=== PATIENT | male | born 1950 | race African-American/Black ===

== ENCOUNTER → 2016-12-13 | Outpatient (CLI) | payer MEDICARE, MEDICAID ==
--- NOTE | 2016-12-13 12:04 | Diagnostic Imaging Report ---
Indication: Abdominal pain left groin pain Technique: Spiral acquisitions obtained through the abdomen and pelvis. Patient given oral contrast. No IV contrast utilized, per referring physician request.. Multiplanar reconstructions were generated. Total dose length product 623 mGycm. CTDIvol(s) 12 mGy. Dose reduction achieved using automated exposure control Comparison: None Findings: Left groin region appears unremarkable. There is no evidence of hernia. There are small lymph nodes present, which are symmetric compared to the contralateral side. There is equivocal mild wall thickening of the proximal sigmoid and distal descending colon, although this could be artifact of under distention. The appendix is normal. No evidence of diverticulosis or diverticulitis. No small bowel distention. Contrast is seen to have traversed the entirety of the small bowel and most of the colon, reaching the distal sigmoid. No free or loculated intraperitoneal air or fluid. There is a tiny fat-containing umbilical hernia. The distal esophagus, stomach, duodenum are unremarkable. The lack of IV contrast limits assessment of the solid organs. There is a calcification in segment 8 of the liver laterally. The gallbladder, bile ducts are grossly unremarkable. There is mild ectasia of the pancreatic duct. The spleen, adrenals are unremarkable. The right kidney demonstrates a 1.5 cm interpolar region fluid attenuation cyst. The left kidney demonstrates multiple cysts. No calculi, hydronephrosis, or hydroureter demonstrated. No retroperitoneal or mesenteric mass or adenopathy. No pelvic mass or adenopathy. The lung bases demonstrate minimal linear atelectasis or scarring. There are degenerative changes of the lumbosacral junction. Sclerotic lesions are seen in the bilateral iliac wings Impression: Equivocal mild wall thickening of the proximal sigmoid and distal descending colon; suspect artifact of under distention but could represent colitis. Correlate with clinical findings No acute process otherwise. Negative for evidence of inguinal hernia or other significant inguinal pathology Mild ectasia of the pancreatic duct, significance uncertain. Correlate with laboratory findings Other findings as noted, including tiny fat-containing umbilical hernia, degenerative spondylosis, bilateral renal cysts, bilateral iliac probable bone islands The CT scanner at [facility] is accredited by the [employer] and the scans are performed using protocols designed to limit radiation exposure to as low as reasonably achievable to attain images of sufficient resolution adequate for diagnostic evaluation.
== END | disposition home or self-care (01) ==
LOC: CAT 09:12
DX: R10.9 Unspecified abdominal pain (principal)
CPT/HCPCS: 74176

== ENCOUNTER 2017-02-01 09:44 | Outpatient (CLI) | payer MEDICARE, MEDICAID ==
[2017-02-01] MEDS ORDERED: NORVASC10 MG ORAL (10:45)
[2017-02-01] MEDS ORDERED: LISINOPRIL20 MG ORAL (10:45)
[2017-02-01] MEDS ORDERED: LUNESTA2 MG ORAL (10:45)
[2017-02-01] MEDS ORDERED: ASPIRIN325 MG ORAL (10:45)
[2017-02-01] MEDS ORDERED: VITAMIN D1000 UNI1 ORAL (10:45)
[2017-02-01] MEDS ORDERED: SOMA250 MG PO (10:45)
[2017-02-01] MEDS ORDERED: CLONIDINE0.1 MG GT (10:45)
[2017-02-01] MEDS ORDERED: DIAZEPAM10 MG ORAL (10:45)
[2017-02-01] MEDS ORDERED: PROMETHAZINE HC25 M1 ORAL (10:45)
[2017-02-01] MEDS ORDERED: TAMSULOSIN HCL0.4 MG ORAL (10:45)
[2017-02-01] MEDS ORDERED: NORCO 5-325 TA1 EAC1 ORAL (10:45)
--- NOTE | 2017-02-01 10:50 | GI Initial Consult Note ---
Torres,Gillian Simon NDianaPDiana 02/01/17 1050: History of Present Illness General Date patient seen: Feb 01, 2017 Time patient seen: 10:00 Referring physician: SIRIA Reason for Consultation: COLONOSCOPY Present Illness HPI 66 year old male patient referred by Dr. Sears for colonoscopy screening. Patient stated he his last colonoscopy was approximately 8-10 years ago and the patient had ?colon CA that had been resolved through spiritual healing. Also noted that patient has noted hernia. He presents to the clinic today with no general GI complaints. Denies any weight loss or changes in dietary habits. Noted recent CT shows mild wall thickening of the proximal sigmoid and distal descending colon, see full report below. Service Date: 12/13/16 Procedure: CT Abdomen Pelvis WO Contrast Indication: Abdominal pain left groin pain Impression: Equivocal mild wall thickening of the proximal sigmoid and distal descending colon; suspect artifact of under distention but could represent colitis. Correlate with clinical findings. No acute process otherwise. Negative for evidence of inguinal hernia or other significant inguinal pathology Mild ectasia of the pancreatic duct, significance uncertain. Correlate with laboratory findings Other findings as noted, including tiny fat-containing umbilical hernia, degenerative spondylosis, bilateral renal cysts, bilateral iliac probable bone islands Home Meds Reported Medications Clonidine HCl (Clonidine HCl) 0.1 Mg Tablet, 0.1 MG GT, TAB 02/01/17 Cholecalciferol (Vitamin D3)* (VITAMIN D*) 1,000 Unit Tablet, 5000 UNITS ORAL, # 60 TAB 0 Refills 02/01/17 Hydrocodone Bit/Acetaminophen 5-325* (NORCO 5-325 TABLET*) 1 Each Tablet, 1 TAB ORAL Q4H Y, TAB 02/01/17 Amlodipine Besylate (Norvasc) 10 Mg Tablet, 10 MG ORAL DAILY, TAB 02/01/17 Diazepam* (DIAZEPAM*) 10 Mg Tablet, 10 MG ORAL, TAB 0 Refills 02/01/17 Promethazine Hcl* (PHENERGAN*) 25 Mg Tablet, 25 MG ORAL Q6H, TAB 02/01/17 Aspirin* (ASPIRIN*) 325 Mg Tablet, 325 MG ORAL DAILY, TAB 02/01/17 Eszopiclone (LUNESTA) 2 Mg Tablet, 2 MG ORAL BEDTIME Y, TAB 0 Refills 02/01/17 Lisinopril (LISINOPRIL*) 20 Mg Tablet, 40 MG ORAL DAILY, TAB 02/01/17 Carisoprodol (SOMA) 250 Mg Tablet, 350 MG PO Q6H, TAB 02/01/17 Tamsulosin Hcl (TAMSULOSIN HCL*) 0.4 Mg Cap.er.24h, 0.4 MG ORAL BEDTIME, CAP 02/01/17 Med list reviewed/reconciled: Yes Allergies: Coded Allergies: No Known Allergies (Unverified , 02/20/16) Patient History History Provided By: Patient PMH Narrative HTN Insomnia Sciatica Degenerative Bone Disease (C3-C4) Asthma Family History Narrative Grandfather - prostate CA Mother - Uterine CA Social History: Reports: other - caffiene Review of Systems All Other Systems: negative except mentioned in HPI Physical Exam T 98.0 BP 91/64 P 54 98 RA HT 5'8 WT 175 lbs Sp02 EP Interpretation: reviewed General Appearance: well appearing, no apparent distress, alert Head: normocephalic EENT: PERRL/EOMI, normal ENT inspection, TMs normal Neck: full range of motion Respiratory: chest non-tender, normal breath sounds Cardiovascular: normal peripheral pulses, normal rate Gastrointestinal: normal inspection, non tender, soft, normal bowel sounds Rectal: deferred Genitourinary: no CVA tenderness Musculoskeletal: normal inspection, back normal Neurologic: normal inspection, alert, oriented x3, responsive Psychiatric: normal inspection, judgement/insight normal, memory normal Skin: normal inspection, normal color, no rash, warm/dry Lymphatic: normal inspection, no adenopathy GI: Plan Problems: (1) Colonoscopy planned (2) HTN (hypertension) (3) Insomnia (4) Sciatic nerve disease (5) Degenerative disorder of bone (6) Asthma (7) Colon wall thickening Plan colonoscopy scheduled 02/12/17. - CLD & [employer] prep instructions given. - patient instructed to hold ASA 325 day prior - pt requires transportation Seen with Dr. Hamilton. Thank you for referring this patient. SHELDON HAMILTON 02/04/17 2157: History of Present Illness Present Illness Home Meds Reported Medications Clonidine HCl (Clonidine HCl) 0.1 Mg Tablet, 0.1 MG GT, TAB 02/01/17 Cholecalciferol (Vitamin D3)* (VITAMIN D*) 1,000 Unit Tablet, 5000 UNITS ORAL, # 60 TAB 0 Refills 02/01/17 Hydrocodone Bit/Acetaminophen 5-325* (NORCO 5-325 TABLET*) 1 Each Tablet, 1 TAB ORAL Q4H Y, TAB 02/01/17 Amlodipine Besylate (Norvasc) 10 Mg Tablet, 10 MG ORAL DAILY, TAB 02/01/17 Diazepam* (DIAZEPAM*) 10 Mg Tablet, 10 MG ORAL, TAB 0 Refills 02/01/17 Promethazine Hcl* (PHENERGAN*) 25 Mg Tablet, 25 MG ORAL Q6H, TAB 02/01/17 Aspirin* (ASPIRIN*) 325 Mg Tablet, 325 MG ORAL DAILY, TAB 02/01/17 Eszopiclone (LUNESTA) 2 Mg Tablet, 2 MG ORAL BEDTIME Y, TAB 0 Refills 02/01/17 Lisinopril (LISINOPRIL*) 20 Mg Tablet, 40 MG ORAL DAILY, TAB 02/01/17 Carisoprodol (SOMA) 250 Mg Tablet, 350 MG PO Q6H, TAB 02/01/17 Tamsulosin Hcl (TAMSULOSIN HCL*) 0.4 Mg Cap.er.24h, 0.4 MG ORAL BEDTIME, CAP 02/01/17 Allergies: Coded Allergies: No Known Allergies (Unverified , 02/20/16) GI: Plan Plan The patient was seen and examined at bedside and all new and available data was reviewed in the patients chart. I agree with the above findings, impression and plan. (Patient seen earlier today. Signature stamp does not reflect patient encounter time.). -Gillian Gordon MD N.Misti Feb 01, 2017 10:50 SHELDON HAMILTON Feb 04, 2017 09:57
[2017-02-01 14:42] VITALS: BP_SYST 132; BP_SYST 91; BP_DIAS 64; BP_DIAS 86
== END 2017-02-01 10:35 | disposition home or self-care (01) ==
LOC: PAN 09:44
DX: I10 Essential (primary) hypertension (principal); G47.00 Insomnia, unspecified; G57.00 Lesion of sciatic nerve, unspecified lower limb; Z85.038 Personal history of other malignant neoplasm of large intestine; Z79.82 Long term (current) use of aspirin; Z80.42 Family history of malignant neoplasm of prostate; Z80.59 Family history of malignant neoplasm of other urinary tract organ
CPT/HCPCS: 99201

== ENCOUNTER 2017-02-07 10:20 | Outpatient (CLI) | payer MEDICARE, MEDICAID ==
[~2017-02-07 10:20] MED LIST: ASPIRIN325 MG ORAL; CLONIDINE0.1 MG GT; DIAZEPAM10 MG ORAL; LISINOPRIL20 MG ORAL; LUNESTA2 MG ORAL; NORCO 5-325 TA1 EAC1 ORAL; NORVASC10 MG ORAL; PROMETHAZINE HC25 M1 ORAL; SOMA250 MG PO; TAMSULOSIN HCL0.4 MG ORAL; VITAMIN D1000 UNI1 ORAL
--- NOTE | 2017-02-07 14:53 | Diagnostic Imaging Report ---
Indication: Neck pain. Technique: Continuous helical imaging of the neck was obtained transaxially from the skull base to the upper thoracic spine. 2-D coronal and sagittal reformatted images were obtained. Total Dose length Product (DLP): [address] Dose Index Volume (CTDIvol): 20 mGy Comparison: None Findings: There is significant limitation on this study due to the absence of intravenous contrast not given for this exam. Patient refused IV contrast. There is no obvious pharyngeal or mucosal-based mass identified. Small nodes are seen in the neck. There is no significant adenopathy identified. The larynx is grossly unremarkable. The epiglottis is unremarkable. Degenerative changes of the cervical spine noted with narrowing of intervertebral discs, endplate spurs. There is no prevertebral soft tissue swelling or air. The lung apices appear clear. Aorta is moderately enlarged and calcified. Impression: No findings to account for the given history of pain in the right side of the neck. Significant limitation due to lack of intravenous contrast which was refused by the patient. Small nodes in the neck, nonspecific Cervical spondylosis. Atherosclerotic vascular disease The CT scanner at [facility] is accredited by the [employer] and the scans are performed using dose optimization techniques as appropriate to a performed exam including Automatic Exposure control.
== END 2017-02-07 12:20 | disposition home or self-care (01) ==
LOC: RAD 10:20
DX: M54.2 Cervicalgia (principal); M47.892 Other spondylosis, cervical region; I70.90 Unspecified atherosclerosis
CPT/HCPCS: 70490

== ENCOUNTER 2017-03-18 10:03 | Outpatient (CLI) | payer MEDICARE, MEDICAID ==
--- NOTE | 2017-03-18 13:05 | Diagnostic Imaging Report ---
Indications: Headache. Past history of CVA Technique: Spiral acquisitions obtained through the brain. Angled axial and coronal 5 x 5 mm slices were reconstructed. Total dose length product 1004 and 11 mGycm. CTDI vol(s) 70 mGy. Dose reduction achieved using automated exposure control Comparison: None Findings: There is cervical volume loss, most prominently in the frontal and parietal lobes, as well as centrally with mild ventriculomegaly. There is some periventricular deep white matter chronic ischemic change. No acute hemorrhage or edema. No mass effect or midline shift. Intact calvarium. Visualized orbits and sinuses are unremarkable. Impression: Chronic and age-related changes, as described. Negative for acute intracranial bleed or mass effect The CT scanner at [facility] is accredited by the [employer] and the scans are performed using protocols designed to limit radiation exposure to as low as reasonably achievable to attain images of sufficient resolution adequate for diagnostic evaluation.
--- NOTE | 2017-03-18 15:51 | Diagnostic Imaging Report ---
Clinical Indication: Chest pain, shortness breath, history of asthma Technique: Spiral acquisitions obtained through the chest. No IV contrast utilized, per referring physician request. Multiplanar reconstructions generated. Total dose length product 610 mGycm. CTDIvol(s) 17 mGy. Dose reduction achieved using automated exposure control Comparison: 08/19/2014 Findings:Stable linear opacity posterior medial right lung base, consistent with some linear scarring linear atelectasis or scarring seen in the medial mid lingula on the left. The lungs and pleural spaces are otherwise clear. No infiltrates, effusions, masses, nodules. A single small cystic space is seen in the left upper lobe in the suprahilar region. This is also evident previously. There is slight pulmonary hyperinflation, with slight flattening of the bilateral hemidiaphragms and increased AP dimensions of the chest. Again demonstrated is an ascending thoracic aortic aneurysm, diameter 5 cm, essentially unchanged from the previous exam. The aortic arch and descending are are nonaneurysmal. The heart size is normal. There is anterior wall pericardial fluid, measuring 10 mm thick. This is slightly increased in thickness from the prior exam. No pulmonary arterial dilatation. No mediastinal or hilar mass or adenopathy. Included thyroid is unremarkable. No axillary or chest wall mass or adenopathy the bones are essentially except for minimal degenerative spondylosis. A calcification is seen within the lateral dome of the right hepatic lobe, also evident previously. The included upper abdominal anatomy is otherwise unremarkable. Impression: No acute abnormality 5 cm diameter ascending thoracic aortic aneurysm, unchanged from prior study Generalized mild pulmonary hyperinflation, consistent with COPD Left upper lobe single small bulla or pneumatocele Small small anterior wall pericardial effusion, slightly increased from previously Mild degenerative spondylosis Small ossified liver lesion, stable, presumably post inflammatory Findings discussed phone with Dr. Sears at 1727 03/18/[address] scanner at [facility] is accredited by the [employer] and the scans are performed using protocols designed to limit radiation exposure to as low as reasonably achievable to attain images of sufficient resolution adequate for diagnostic evaluation.
== END 2017-03-18 12:03 | disposition home or self-care (01) ==
LOC: CAT 10:03
DX: J45.909 Unspecified asthma, uncomplicated (principal); R06.02 Shortness of breath; R07.9 Chest pain, unspecified; I71.2 Thoracic aortic aneurysm, without rupture; J43.9 Emphysema, unspecified; M47.9 Spondylosis, unspecified
CPT/HCPCS: 70450; 71250

== ENCOUNTER 2019-01-16 09:33 | Outpatient (CLI) | payer MEDICARE, MEDICAID ==
--- NOTE | 2019-01-16 13:30 | Diagnostic Imaging Report ---
Indication: Pain and swelling of the ankle Technique: Right ankle/hind foot imaging utilizing multiplanar T1 fast spin-echo, proton and T2 fast spin-echo with fat saturation, and STIR. Comparison: None Findings: Bone marrow signal and alignment appear normal. Articular cartilage appears normal. There is no joint effusion. Posterior to the tibiotalar joint and there are 2 small ganglion cysts present measuring approximately 1 cm and 7 mm. Trace fluid noted in the retrocalcaneal bursa. The Achilles tendon is normal. Plantar aponeurosis appears unremarkable. Tarsal sinus is unremarkable. The ligaments and tendons appear normal. On the lateral side the anterior talofibular ligament and posterior talofibular ligament, calcaneofibular ligament, the tibiofibular ligaments appear unremarkable. Deltoid ligamentous complex is normal on the medial side. Calcaneal Spring ligament unremarkable. Peroneus longus and brevis tendons, posterior tibialis tendon, flexor digitorum longus and flexor hallucis longus appear unremarkable. Extensor tendons are unremarkable. IMPRESSION: Small ganglion cysts in the posterior aspect of the ankle. Negative examination otherwise.
--- NOTE | 2019-01-16 13:32 | Diagnostic Imaging Report ---
Indication: Left ankle pain and swelling Technique: Left ankle/hindfoot imaging utilizing multiplanar T1 fast spin-echo, proton and T2 fast spin-echo with fat saturation, and STIR. Comparison: None Findings: Bone marrow signal and alignment appear normal. Articular cartilage appears normal. There is no joint effusion. Trace fluid noted in the retrocalcaneal bursa. The Achilles tendon is normal. Plantar aponeurosis appears unremarkable. Tarsal sinus is unremarkable. The ligaments and tendons appear normal. On the lateral side, the anterior talofibular ligament and posterior talofibular ligament, calcaneofibular ligament, the tibiofibular ligaments appear unremarkable. Deltoid ligamentous complex is normal on the medial side. Calcaneal Spring ligament unremarkable. Peroneus longus and brevis tendons, posterior tibialis tendon, flexor digitorum longus and flexor hallucis longus appear unremarkable. Extensor tendons are unremarkable. IMPRESSION: Negative examination of the left ankle
--- NOTE | 2019-01-16 13:49 | Diagnostic Imaging Report ---
Indication: Right foot pain and swelling Technique: Right midfoot/forefoot imaging utilizing multiplanar T1 fast spin-echo, proton and T2 fast spin-echo with fat saturation, and STIR. Comparison: None Findings: Bone marrow signal and alignment are normal. Articular cartilage appears well-preserved. There is no joint effusion, soft tissue mass or abnormal fluid collections identified. IMPRESSION: Negative evaluation of the right forefoot midfoot.
--- NOTE | 2019-01-16 13:52 | Diagnostic Imaging Report ---
Indication: Headache Technique: Contiguous 5 mm thick transaxial imaging of the head obtained in a Siem[employer] Sensation [address] scanner. Soft tissue and bone windows generated. Automatic Exposure Control was utilized. Total Dose length Product (DLP): 1421.[address] Dose Index Volume (CTDIvol): 70.38 mGy Comparison: 03/18/2017 Findings: There is moderate prominence of the ventricles, basal cisterns, and cerebral sulci consistent with atrophy. There is a frontal predominance. Mild, nonspecific, white matter hypoattenuation is noted throughout the brain consistent with chronic small vessel disease. There is no midline shift, edema, acute hemorrhage, mass effect, or abnormal extra-axial fluid collections. There is a defect in the left lamina papyracea consistent with an old fracture. Impression: No acute intracranial bleed, mass effect or edema. Moderate atrophy of the brain. Evidence of chronic small vessel disease involving white matter tracts. Old left medial orbital wall fracture. No interval change The CT scanner at [facility] is accredited by the [employer] and the scans are performed using dose optimization techniques as appropriate to a performed exam including Automatic Exposure control.
== END 2019-01-16 11:33 | disposition home or self-care (01) ==
LOC: MRI 09:33
DX: M25.571 Pain in right ankle and joints of right foot (principal); G89.29 Other chronic pain; M67.471 Ganglion, right ankle and foot; M25.572 Pain in left ankle and joints of left foot; R51 Headache; G31.9 Degenerative disease of nervous system, unspecified; I73.9 Peripheral vascular disease, unspecified
CPT/HCPCS: 70450